=== PATIENT | female | born 1965 | race Caucasian/White ===

== ENCOUNTER 2017-05-29 11:14 | Inpatient (IN) | payer MEDICAID ==
[~2017-05-29] VITALS: Ht 172.7 cm; Wt 75.3 kg
[~2017-05-29 11:14] MED LIST: DIVA125T PO; DULO30CA2 PO; VIST50 PO
[2017-05-29 11:32] VITALS: BP 153/95
[2017-05-29] MEDS ORDERED: ZOLPIDEM TARTRATE 10 MG TABLET PO PRN (13:00)
[2017-05-29] MEDS ORDERED: MAGNESIUM HYDROXIDE SUSPENSION 30 ML UDCUP PO PRN (13:00)
[2017-05-29] MEDS ORDERED: GuaiFENesin/D-METHORPHAN [SUGAR-FREE] 200-20MG/10 ML SYRUP UDCUP PO PRN (13:00)
[2017-05-29] MEDS ORDERED: LOPERAMIDE HCL 2 MG CAPSULE PO PRN (13:00)
[2017-05-29] MEDS ORDERED: TUBERCULIN, PURIFIED PROTEIN DERIVATIVE 5 TU/0.1 ML SYG ID ONE (13:00)
[2017-05-29] MEDS ORDERED: MAG HYDROX/AL HYDROX/SIMETH ES 30 ML SUSPENSION UDCUP PO PRN (13:00)
[2017-05-29] MEDS ORDERED: ACETAMINOPHEN 325 MG TABLET PO PRN ×2 (13:00→20:15)
[2017-05-29] MEDS ORDERED: HydrOXYzine PAMOATE 50 MG CAPSULE PO PRN (13:00)
[2017-05-29] MEDS ORDERED: QUEtiapine FUMARATE 100 MG TABLET PO PRN (13:00)
[2017-05-29] MEDS ORDERED: PROMETHAZINE HCL 25 MG TABLET PO PRN (13:00)
[2017-05-29] MEDS ORDERED: INFLUENZA VIRUS VACCINE QVS 2017-18 (3YR+)/PF 60 MCG/0.5 ML SYRINGE IM ONE (14:00)
[2017-05-29] MEDS: LORazepam 2 MG TABLET PO PRN (14:13)
[2017-05-29 15:14] VITALS: BP 140/93
[2017-05-29 16:16] VITALS: BP 115/77
[2017-05-29] MEDS ORDERED: IBUPROFEN 400 MG TABLET PO PRN (20:15)
[2017-05-30 06:02] VITALS: BP 129/70
[2017-05-30] MEDS: NALTREXONE HCL 50 MG TABLET PO SCH (08:26)
[2017-05-30] MEDS: FOLIC ACID 1 MG TABLET PO SCH (08:26)
[2017-05-30] MEDS: THIAMINE HCL 100 MG TABLET PO SCH ×2 (08:27→16:17)
[2017-05-30] MEDS: MULTIVITAMINS WITH MINERALS, THERAPEUTIC TABLET PO SCH (08:27)
[2017-05-30] MEDS: LORazepam 2 MG TABLET PO PRN ×2 (08:28→17:21)
[2017-05-30 08:58] VITALS: BP 120/73
[2017-05-30] MEDS ORDERED: DULoxetine HCL 20 MG CAPSULE PO SCH (09:00)
[2017-05-30 09:07] LABS: BASOPHILS # (AUTO) 0.03 K/uL (0.00-0.20); BASOPHILS % (AUTO) 0.3 % (0.0-2.0); EOSINOPHILS # (AUTO) 0.07 K/uL (0.00-0.70); EOSINOPHILS % (AUTO) 0.82 % (1.0-6.0); HEMATOCRIT 36.3 % (36-46); HEMOGLOBIN 11.8 g/dL (12.0-16.0); LYMPHOCYTES # (AUTO) 1.6 K/uL (1.0-4.8); LYMPHOCYTES % (AUTO) 18.7 % (22.0-44.0); MEAN CORPUSCULAR HGB CONC 32.4 G/dL (31.0-37.0); MEAN CORPUSCULAR VOLUME 86 fL (80-100); MONOCYTES # (AUTO) 0.6 K/uL (0.1-1.0); MONOCYTES % (AUTO) 7.1 % (2.0-9.0); NEUTROPHILS # (AUTO) 6.1 K/uL (1.8-7.7); PLATELET COUNT (AUTO) 263 K/uL (150-450)
[2017-05-30 09:38] LABS: ALANINE AMINOTRANSFERASE 18 U/L (12-78); ALBUMIN 3.1 g/dL (3.4-5.0); ALKALINE PHOSPHATASE 51 U/L (46-116); ANION GAP 5 mmol/L (8-16); ASPARTATE AMINOTRANSFERASE 13 U/L (15-37); BILIRUBIN,TOTAL 0.4 mg/dL (0.1-1.0); CALCIUM, TOTAL 8.2 mg/dL (8.8-10.5); CARBON DIOXIDE 29 mmol/L (22-29); CHLORIDE 104 mmol/L (98-107); CHOL/HDL RATIO 2.8 (3.9-5.7); CHOLESTEROL 148 mg/dL (131-200); CREATININE 0.75 mg/dL (0.60-1.30); FREE T4 (FREE THYROXINE) 1.05 ng/dL (0.76-1.46); GLOMERULAR FILTR. RATE CALC > 60 mL/min (>60); GLUCOSE,RANDOM 108 mg/dL (70-110); HDL CHOLESTEROL 52 mg/dL (40-60); LDL CHOL (CALC.) 84 mg/dL (0-130); POTASSIUM 3.8 mmol/L (3.5-5.1); SODIUM SERUM 138 mmol/L (136-145); THYROID STIMULATING HORMONE 0.19 uIU/mL (0.36-3.74); TOTAL PROTEIN, SERUM 6.7 g/dL (6.4-8.2); TRIGLYCERIDES 59 mg/dL (15-150); UREA NITROGEN, BLOOD 9 mg/dL (7-18)
[2017-05-30 16:44] VITALS: BP 127/65
[2017-05-31 00:25] VITALS: BP 130/81
[2017-05-31 04:30] VITALS: BP 130/79
[2017-05-31] MEDS: LORazepam 2 MG TABLET PO PRN ×2 (04:35→16:43)
[2017-05-31 08:33] VITALS: BP 108/73
[2017-05-31] MEDS: THIAMINE HCL 100 MG TABLET PO SCH ×2 (08:36→16:43)
[2017-05-31] MEDS: FOLIC ACID 1 MG TABLET PO SCH (08:37)
[2017-05-31] MEDS: NALTREXONE HCL 50 MG TABLET PO SCH (08:37)
[2017-05-31] MEDS: MULTIVITAMINS WITH MINERALS, THERAPEUTIC TABLET PO SCH (08:37)
[2017-05-31] MEDS ORDERED: DULoxetine HCL 30 MG CAPSULE PO SCH (09:00)
[2017-05-31 17:26] VITALS: BP 123/85
[2017-06-01 03:34] VITALS: BP 130/86
[2017-06-01 08:23] VITALS: BP 123/71
[2017-06-01] MEDS: THIAMINE HCL 100 MG TABLET PO SCH ×2 (08:30→16:07)
[2017-06-01] MEDS: FOLIC ACID 1 MG TABLET PO SCH (08:30)
[2017-06-01] MEDS: MULTIVITAMINS WITH MINERALS, THERAPEUTIC TABLET PO SCH (08:30)
[2017-06-01] MEDS: NALTREXONE HCL 50 MG TABLET PO SCH (08:30)
[2017-06-01] MEDS: LORazepam 2 MG TABLET PO PRN ×2 (08:30→16:07)
[2017-06-01] MEDS ORDERED: DULoxetine HCL 20 MG CAPSULE PO SCH (09:00)
[2017-06-01] MEDS ORDERED: NALT50TA PO (13:19)
[2017-06-01] MEDS ORDERED: DULO60CA44 PO (13:19)
[2017-06-01 18:34] VITALS: BP 120/70
[2017-06-02 01:14] VITALS: BP 119/76
[2017-06-02] MEDS ORDERED: NALT50TA6 PO (07:34)
[2017-06-02] MEDS ORDERED: DULO60CA44 PO (07:35)
[2017-06-02 08:06] VITALS: BP 126/67
[2017-06-02] MEDS: NALTREXONE HCL 50 MG TABLET PO SCH (08:40)
[2017-06-02] MEDS: MULTIVITAMINS WITH MINERALS, THERAPEUTIC TABLET PO SCH (08:40)
[2017-06-02] MEDS: FOLIC ACID 1 MG TABLET PO SCH (08:40)
[2017-06-02] MEDS: THIAMINE HCL 100 MG TABLET PO SCH (08:40)
[2017-06-02] MEDS: LORazepam 2 MG TABLET PO PRN (08:56)
[2017-06-02] MEDS ORDERED: DULoxetine HCL 60 MG CAPSULE PO SCH (09:00)
== END 2017-06-02 11:45 | disposition home or self-care (01) | DRG 751 ==
LOC: B2S 13:03 → 4E 16:19 → B2S 17:31
PROVIDERS: ADMIT Psychiatry & Neurology Psychiatry; ATTEND Psychiatry & Neurology Psychiatry
PROC: 3E0234Z Introduction of Serum, Toxoid and Vaccine into Muscle, Percutaneous Approach (ICD-10-PCS; principal; 2017-05-29)
DX: F33.9 Major depressive disorder, recurrent, unspecified (principal); R45.851 Suicidal ideations; Z91.19 Patient's noncompliance with other medical treatment and regimen; I10 Essential (primary) hypertension; F10.10 Alcohol abuse, uncomplicated; F17.200 Nicotine dependence, unspecified, uncomplicated; F19.10 Other psychoactive substance abuse, uncomplicated; Z59.9 Problem related to housing and economic circumstances, unspecified; Z65.3 Problems related to other legal circumstances; Z88.2 Allergy status to sulfonamides; Z91.410 Personal history of adult physical and sexual abuse; Z23 Encounter for immunization
CPT/HCPCS: 83036; 84439; 84443; 86592; 90471

== ENCOUNTER 2018-10-28 14:12 | Emergency (ER) | payer MEDICAID, OTHER ==
[~2018-10-28] VITALS: Ht 172.7 cm; Wt 70.5 kg
[~2018-10-28 14:12] MED LIST changes: -DIVA125T PO; -DULO30CA2 PO; +DULO60CA44 PO; +NALT50TA PO; +NALT50TA6 PO; -VIST50 PO
[2018-10-28] MEDS ORDERED: LORazepam 1 MG TABLET PO ONE (15:30)
[2018-10-28 16:51] VITALS: BP 131/89
== END 2018-10-28 17:03 | disposition home or self-care (01) ==
LOC: EMS 14:13
DX: F41.9 Anxiety disorder, unspecified (principal); F31.9 Bipolar disorder, unspecified; F17.210 Nicotine dependence, cigarettes, uncomplicated; F14.90 Cocaine use, unspecified, uncomplicated; Z88.2 Allergy status to sulfonamides